=== PATIENT | female | born 1985 | race Caucasian/White ===

== ENCOUNTER 2018-11-12 20:10 | Emergency (ER) | payer BC ==
[2018-11-12 20:32] VITALS: BP 125/85
--- NOTE | 2018-11-12 20:54 | UC ---
Headache HPI - HPI Summary HPI Summary: Patient is a 33-year-old female here with multiple symptoms. Patient woke up on Saturday morning with pain in her right neck. Patient's pain reduced onto her right arm. Patient's had sensation of weakness in her right arm periodically since then. Patient's had periodic dizziness, difficulty swallowing, and inability to focus on conversations. Patient states she's never had symptoms like this before. Patient is a change in vision, numbness, tingling, difficulty speaking, lower extremity symptoms. Patient had no inciting trauma. Patient does not chiropractor. medications reviewed - History Of Current Complaint Chief Complaint: UCHeadache Stated Complaint: PAIN IN BACK OF HEAD, NECK Time Seen by Provider: 11/12/18 20:38 Hx Obtained From: Patient Hx Last Menstrual Period: NOW Onset/Duration: Sudden Onset Onset Of Symptoms: Sudden Pain Intensity: 6 - Allergies/Home Medications Allergies/Adverse Reactions: Allergies Allergy/AdvReac Type Severity Reaction Status Date / Time No Known Allergies Allergy Verified 11/12/18 20:32 Home Medications: Home Medications Ibuprofen TAB* [Advil TAB*] 200 mg PO ONCE PRN 11/12/18 [History Confirmed 11/12] PMH/Surg Hx/FS Hx/Imm Hx Previously Healthy: Yes - Surgical History Surgical History: None - Family History Known Family History: Positive: Non-Contributory - Social History Alcohol Use: Occasionally Substance Use Type: None Smoking Status (MU): Never Smoked Tobacco Review of Systems All Other Systems Reviewed And Are Negative: Yes Constitutional: Negative: Fever, Chills Skin: Negative: Bruising Eyes: Negative: Blurred Vision Respiratory: Negative: Shortness Of Breath Cardiovascular: Negative: Chest Pain Gastrointestinal: Negative: Abdominal Pain, Vomiting Physical Exam - Summary Physical Exam Summary: Vital Signs Reviewed: Yes A+Ox3, no distress Eyes: Conjunctiva Clear, PERRL. EOM intact and full ENT: Hearing grossly normal TM x 2 clear, moist, uvula midline, no exudate, no erythema Neck: Positive: Supple Respiratory: Positive: No respiratory distress, No accessory muscle use + CTA throughout no w/r Cardiovascular: RRR nl s1, s2 no m/r CBT <2 sec abd soft + BS nt/nd no guarding, no distension Musculoskeletal Exam: STERLING x 4 without difficulty Strength Intact, ROM Intact Neurological: Cranial nerves II through XII intact. 5 out of 5 strength in bilateral upper extremities and lower extremity is. Patient walking with a normal gait. Extraocular movements intact with no nystagmus. Tenderness to the right lateral neck to the right shoulder. Psychological: Positive: Normal Response To Family Skin: no rash, no ecchymosis Triage Information Reviewed: Yes Vital Signs: Initial Vital Signs Temp 98.6 F 11/12/18 20:26 Pulse 96 11/12/18 20:26 Resp 16 11/12/18 20:26 BP 125/85 11/12/18 20:26 Pulse Ox 100 11/12/18 20:26 Headache Course/Dx - Course Course Of Treatment: Patient is here symptoms that are concerning for vertebral artery dissection. Patient is neurologically intact here but her symptoms are not consistent with it. [place] skull etiology. Given her potential neurologic symptoms, patient took an ambulance to the emergency department for further evaluation. - Differential Dx/Diagnosis Differential Diagnosis/HQI/PQRI: TIA, Epidural Hematoma, Subdural Hematoma, Subarachnoid Hemorrhage, Other - Vertebral artery dissection Provider Diagnosis: Neck pain on right side, Vertigo, Headache, Right arm weakness Discharge - Sign-Out/Discharge Documenting (check all that apply): Patient Departure All imaging exams completed and their final reports reviewed: No Studies - Discharge Plan Condition: Guarded Disposition: TRANS HIGHER LVL OF CARE FAC Referrals: No Primary Care Phys,NOPCP [Primary Care Provider] - - Billing Disposition and Condition Condition: GUARDED Disposition: Trans Higher Lvl of Care Fac
== END 2018-11-12 21:28 | disposition short-term general hospital (02) ==
LOC: UCEAST 20:10
DX: M54.2 Cervicalgia (principal); R42 Dizziness and giddiness; R51 Headache; M62.81 Muscle weakness (generalized)
CPT/HCPCS: 99203; G0463

== ENCOUNTER 2018-11-12 21:48 | Emergency (ER) | payer BC ==
[2018-11-12] MEDS ORDERED: NS 0.9% 1000 ML** 1,000 ML IV ONE (22:05)
[2018-11-12 22:26] LABS: ABS Basophils 0.1 10^3/ul (0-0.2); ABS Eosinophils 0.1 10^3/ul (0-0.6); ABS Lymphocytes 3.3 10^3/ul (1.0-4.8); ABS Monocytes 0.8 10^3/ul (0-0.8); ABS Neutrophils 6.1 10^3/ul (1.5-7.7); Hematocrit 34 % (35-47); Hemoglobin 11.8 g/dL (12.0-16.0); Lymphocyte % 31.4 %; Mean Corpuscular HGB Conc 35 g/dL (31-36); Mean Corpuscular Hemoglobin 32 pg (27-31); Mean Corpuscular Volume 91 fL (80-97); Mean Platelet Volume 7.1 fL (7.4-10.4); Platelet Count 263 10^3/uL (150-450); Red Blood Count 3.67 10^6 /uL (3.70-4.87); Red Cell Distribution Width 13 % (10-15); White Blood Count 10.4 10^3/uL (3.5-10.8)
[2018-11-12 22:43] LABS: ALT 9 U/L (7-52); AST 15 U/L (13-39); Albumin 4.3 g/dL (3.2-5.2); Albumin/Globulin Ratio 1.5 (1-3); Alkaline Phosphatase 50 U/L (34-104); Anion Gap 6 mmol/L (2-11); BUN/Creatinine Ratio 16.7 (8-20); Blood Urea Nitrogen 11 mg/dL (6-24); CO2 Carbon Dioxide 24 mmol/L (22-32); Calcium 9.6 mg/dL (8.6-10.3); Chloride 109 mmol/L (101-111); EGFR African American 124.8 (>60); EGFR Non-African American 103.1 (>60); Globulin 2.8 g/dL (2-4); Glucose 107 mg/dL (70-100); Potassium 3.5 mmol/L (3.5-5.0); Sodium 139 mmol/L (135-145); Total Protein 7.1 g/dL (6.4-8.9)
[2018-11-12 22:49] LABS: HCG Pregnancy < 0.60 mIU/mL
[2018-11-12] MEDS ORDERED: Iohexol 350* (CONTRAST) 500 ML MDV IV ONE (22:51)
--- NOTE | 2018-11-12 23:18 | ED ---
Altered Mental Status - HPI Summary HPI Summary: The patient is a 33 y/o F arriving by ambulance to [facility] with a chief complaint of dizziness and difficulty with understanding others speech today. She reports that four days ago, she had been camping about an hour away from her home, and the next day she woke up with right-sided neck soreness that radiated into the shoulder. The same day, she drove home and spent the day with her family before driving to [place] for work training, where she checked into her hotel that night. The next morning, she still had the neck and shoulder pain, which is still present now. Earlier today, she had been at her training and became dizzy and nauseous with a headache, and she had difficulty understanding other peoples speech. This seemed to resolve, but she had another episode with similar symptoms tonight while eating dinner. She denies any slurred speech of her own, visual changes including blurred or loss of vision, weakness, or numbness or tingling in the hands. She notes that she is currently stressed with the activity shes been doing recently. She also states that she has been doing some physical activity related to the training she has been doing, which she believes may have exacerbated any musculoskeletal strains she may have in conjunction with the neck and shoulder myalgia. She doesnt have any previous neurological hx. There was no associated trauma to the head. PMHx: none. Nonsmoker, no EtOH, no substance use. - History Of Current Complaint Chief Complaint: EDAltMentalStatus Stated Complaint: DIZZINESS PER EMS Time Seen by Provider: 11/12/18 22:41 Hx Obtained From: Patient Hx Last Menstrual Period: NOW Onset/Duration: Gradually Timing: Lasting Days - 3 Severity Initially: Moderate Severity Currently: Moderate Aggravating Factor(s): Other - possibly stress-related or from doing physical activity Alleviating Factor(s): Nothing Associated Signs And Symptoms: Positive: Dizziness, Nausea, Headache. Negative : Weakness - Allergies/Home Medications Allergies/Adverse Reactions: Allergies Allergy/AdvReac Type Severity Reaction Status Date / Time No Known Allergies Allergy Verified 11/12/18 20:32 PMH/Surg Hx/FS Hx/Imm Hx Endocrine/Hematology History: Denies: Hx Diabetes Cardiovascular History: Denies: Hx Hypertension - Surgical History Surgical History: None Surgery Procedure, Year, and Place: none Infectious Disease History: No Infectious Disease History: Denies: Traveled Outside the [place] in Last 30 Days - Family History Known Family History: Negative: Hypertension, Diabetes - Social History Alcohol Use: Occasionally Hx Substance Use: No Substance Use Type: Reports: None Hx Tobacco Use: No Smoking Status (MU): Never Smoked Tobacco Review of Systems Positive: Other - NEGATIVE: visual changes. Negative: Blurred Vision Positive: Nausea Positive: Myalgia - pain in right neck and extending to right shoulder Neurological: Other - dizziness, difficulty with understanding speech from others Positive: Headache. Negative: Numbness - or tingling in hands, Slurred Speech All Other Systems Reviewed And Are Negative: Yes Physical Exam - Summary Physical Exam Summary: Appearance: Well-appearing, Well-nourished, lying in bed comfortably Skin: Warm, dry, no obvious rash Eyes: sclera anicteric, no conjunctival pallor ENT: mucous membranes moist, pharynx appears normal Neck: Supple, nontender Respiratory: Clear to auscultation, no signs of respiratory distress Cardiovascular: Normal S1, S2. No murmurs. Normal distal pulses in tibial and radial bilaterally. Abdomen: Soft, nontender, normal active bowel sounds present Musculoskeletal: Normal, Strength/ROM Intact, Motor function in all 4 extremities is normal and symmetric. There is no rigidity or tremor noted. Neurological: A&Ox3, awake and alert, mentation is normal, speech is fluent and appropriate, Level of consciousness nml. The patient is alert and oriented. Cranial nerves are grossly intact. Gaze is conjugate and without nystagmus. Peripheral vision is intact to confrontation. There are no gross sensory abnormalities to light touch. There is no truncal or fine motor ataxia. Gait is normal. GCS: 15, NIH: 0. Psychiatric: affect is normal, does not appear anxious or depressed Triage Information Reviewed: Yes Vital Signs On Initial Exam: Initial Vitals Temp Pulse Resp BP Pulse Ox 99.1 F 80 16 129/74 100 11/12/18 22:09 11/12/18 22:09 11/12/18 22:09 11/12/18 22:09 11/12/18 22:09 Vital Signs Reviewed: Yes - [place] Coma Scale Best Eye Response: 4 - Spontaneous Best Motor Response: 6 - Obeys Commands Best Verbal Response: 5 - Oriented Coma Scale Total: 15 Diagnostics - Vital Signs Vital Signs Temp Pulse Resp BP Pulse Ox 11/12/18 22:09 99.1 F 80 16 129/74 100 - Laboratory Lab Results: Lab Results 11/12/18 11/12/18 Range/Units 22:20 22:20 WBC 10.4 (3.5-10.8) 10^3/uL RBC 3.67 L (3.70-4.87) 10^6 /uL Hgb 11.8 L (12.0-16.0) g/dL Hct 34 L (35-47) % MCV 91 (80-97) fL MCH 32 H (27-31) pg MCHC 35 (31-36) g/dL RDW 13 (10-15) % Plt Count 263 (150-450) 10^3/uL MPV 7.1 L (7.4-10.4) fL Neut % (Auto) 59.0 % Lymph % (Auto) 31.4 % [place] % (Auto) 8.0 % Eos % (Auto) 1.0 % Baso % (Auto) 0.6 % Absolute Neuts (auto) 6.1 (1.5-7.7) 10^3/ul Absolute Lymphs (auto) 3.3 (1.0-4.8) 10^3/ul Absolute Monos (auto) 0.8 (0-0.8) 10^3/ul Absolute Eos (auto) 0.1 (0-0.6) 10^3/ul Absolute Basos (auto) 0.1 (0-0.2) 10^3/ul Absolute Nucleated RBC 0.0 10^3/ul Nucleated RBC % 0.0 Sodium 139 (135-145) mmol/L Potassium 3.5 (3.5-5.0) mmol/L Chloride 109 (101-111) mmol/L Carbon Dioxide 24 (22-32) mmol/L Anion Gap 6 (2-11) mmol/L BUN 11 (6-24) mg/dL Creatinine 0.66 (0.51-0.95) mg/dL Est GFR ( Amer) 124.8 (>60) Est GFR (Non-Af Amer) 103.1 (>60) BUN/Creatinine Ratio 16.7 (8-20) Glucose 107 H (70-100) mg/dL Calcium 9.6 (8.6-10.3) mg/dL Total Bilirubin 0.40 (0.2-1.0) mg/dL AST 15 (13-39) U/L ALT 9 (7-52) U/L Alkaline Phosphatase 50 (34-104) U/L Total Protein 7.1 (6.4-8.9) g/dL Albumin 4.3 (3.2-5.2) g/dL Globulin 2.8 (2-4) g/dL Albumin/Globulin Ratio 1.5 (1-3) Beta HCG, Quant < 0.60 mIU/mL Result Diagrams: 11/12/18 22:20 11/12/18 22:20 Lab Statement: Any lab studies that have been ordered have been reviewed, and results considered in the medical decision making process. - CT Head/Neck CTA CT Interpretation Completed By: Radiologist Summary of CT Findings: Impression: No acute findings. ED physician has reviewed this report. National Institutes Of Health - NIH Scale Level of Consciousness: Alert/Keenly Responsive Ask Patient the Month and His/Her Age: Both Correct Ask Pt to Open/Close Eyes and [employer]/Release Non-Paretic Hand: Both Correctly Best Gaze (Only Horizontal Eye Movement): Normal Visual Field Testing: No Visual Loss Facial Paresis-Pt to Smile & Close Eyes or Grimace Symmetry: Normal/Symmetrical Motor Function - Right Arm: No Drift-Holds 10 Seconds Motor Function - Left Arm: No Drift-Holds 10 Seconds Motor Function - Right Leg: No Drift-Holds 10 Seconds Motor Function - Left Leg: No Drift-Holds 10 Seconds Limb Ataxia-Must be out of Proportion to Weakness Present: Absent Sensory (Use Pinprick to Test Arms/Legs/Trunk/Face): Normal Best Language (Describe Picture, Name Items): No Aphasia Dysarthria (Read Several Words): Normal Extinction and Inattention: No Abnormality Total Score: 0 Re-Evaluation - Re-Evaluation First Eval Re-Evaluation Time: 05:00 Comment: We discussed results and discharge home. Altered Mental Statu Course/Dx - Course Course Of Treatment: Patient is a 33 y/o F with cc of sudden onset dizziness, headache, and difficulty understanding others speech today following right- sided neck and shoulder pain starting three days ago without any trauma. Additionally c/o nausea. Denies weakness, numbness, or visual changes. No neurological hx. Upon physical exam, the patient exhibits no acute abnormalities , GCS: 15, NIH: 0. Blood work without any significant abnormalities. Patient administered fluids in the ED course. Head/Neck CTA with contrast impression reveals no acute findings. I discussed the patients case with Dr. Malik from neurology, and he recommends discharge based on todays findings. Patient understands and agrees with discharge plan. - Diagnoses Provider Diagnoses: Neck pain - Provider Notifications Discussed Care Of Patient With: Mark Malik - neurology Time Discussed With Above Provider: 00:46 Instructed by Provider To: Other - I discussed the patient's case with Dr. Malik , and he believes the patient can be discharged at this time with negative CTA results and benign neuro exam. Discharge - Sign-Out/Discharge Documenting (check all that apply): Patient Departure - Patient will be discharged home. Patient Received Moderate/Deep Sedation with Procedure: No - Discharge Plan Condition: Good Disposition: HOME Patient Education Materials: Neck Pain (ED) Forms: *Gen. Provider Communication Referrals: [facility] [Outside] Additional Instructions: Your symptoms were concerning for a problem involving the major arteries in the neck called an arterial dissection. Fortunately the CT scans we did were negative and did not show evidence of this problem, so I think it is safe for you to be discharged, but I would recommend seeing a neurologist when you get back to [place]. - Billing Disposition and Condition Condition: GOOD Disposition: Home - Attestation Statements Document Initiated by Lois: Yes Documenting Scribe: Lashonda Nguyen Provider For Whom Lois is Documenting (Include Credential): Dr. Jonnathan Santamaria MD Scribe Attestation: I, Lashonda Nguyen scribed for Dr. Jonnathan Santamaria MD on 11/17/18 at 0141. Scribe Documentation Reviewed: Yes Provider Attestation: The documentation as recorded by the Lashonda trujillo accurately reflects the service I personally performed and the decisions made by me, Dr. Jonnathan Santamaria MD Status of Scrpaul Document: Viewed
[2018-11-12 23:19] LABS: Urine Appearance Clear; Urine Bacteria Absent (Absent); Urine Bilirubin Negative (Negative); Urine Blood 1+ (Negative); Urine Color Yellow; Urine Glucose Negative (Negative); Urine Ketones Negative (Negative); Urine Nitrite Negative (Negative); Urine Protein Negative (Negative); Urine Red Blood Cell Trace(0-2/hpf) (Absent); Urine Specific Gravity 1.017 (1.010-1.030); Urine Squamous Epithelial Cell Present (Absent); Urine Urobilinogen Negative (Negative); Urine White Blood Cell Absent (Absent)
[2018-11-13 05:32] VITALS: BP 144/88
== END 2018-11-13 05:30 | disposition home or self-care (01) ==
LOC: ED 21:48
DX: M54.2 Cervicalgia (principal); R42 Dizziness and giddiness; R51 Headache; R11.0 Nausea
CPT/HCPCS: 36415; 70496; 70498; 80053; 81003; 81015; 84702; 85025; 96360; 99282; Q9967